=== PATIENT | female | born 1955 | race Caucasian/White ===

== ENCOUNTER 2018-05-05 05:06 | Emergency (ER) | payer OTHER ==
[~2018-05-05] VITALS: Ht 170.2 cm; Wt 93.0 kg
--- NOTE | ~2018-05-05 | EKG ---
[place] [address] [address] [facility] [place] [address] ELECTROCARDIOGRAM REPORT Name: MIRA SCOTT [id number] Admission: 05/05/18 Attend Phys: Discharge: Date of : 59 Report #: [id number] THIS REPORT FOR: //name// [facility] ED Test Date: 2018-05-05 Test Time: 05:42:09 Pat Name: MIRA SCOTT Department: Room: Gender: F [employer]: Matt MORROW : 1955 Requested By: Jono Charles Order Number: [id number] MD: Darrel Gallegos Measurements Intervals [place] Rate: 93 P: 61 MS: 152 QRS: -11 QRSD: 87 T: 39 QT: 340 QTc: 423 Interpretive Statements Sinus rhythm Normal tracing No previous ECG available for comparison Electronically Signed On 05-05-2018 8:17:39 CDT by Darrel Gallegos [email or web address] <ELECTRONICALLY SIGNED> By: Darrel Gallegos MD, [facility] 05/05/18 0817 0542 0542 Darrel Gallegos MD, [facility] /EPI
[2018-05-05 05:55] LABS: ABSOLUTE NEUTROPHILS 9.3 thou/uL (1.4-8.2); BASOPHILS 0.4 % (0.0-2.0); EOSINOPHILS 0.2 % (0.0-3.0); HEMATOCRIT 41.4 % (37.0-47.0); HEMOGLOBIN 14.4 gm/dL (12.0-15.0); LYMPHOCYTES 10.4 % (24.0-44.0); MCH 30.5 pg (26.0-34.0); MCHC 34.7 g/dL (28.0-37.0); MCV 88.1 fL (80.0-100.0); MONOCYTES 4.5 % (1.0-8.0); PLATELET COUNT 255 thou/uL (150-400); POLYS 84.5 % (36.0-66.0); RDW 13.3 % (10.5-14.5); WBC 11.1 thou/uL (4.0-11.0)
[2018-05-05 06:08] LABS: ANION GAP 9 mmol/L (7-16); BUN 8 mg/dL (7-18); CHLORIDE 103 mmol/L (98-107); CO2 26 mmol/L (21-32); GLUCOSE 142 mg/dL (74-106); SODIUM 138 mmol/L (136-145)
[2018-05-05 06:17] LABS: ALBUMIN 3.9 g/dL (3.4-5.0); MAGNESIUM 1.9 mg/dL (1.8-2.4); SGOT 23 U/L (15-37); SGPT 25 U/L (30-65); TOTAL BILIRUBIN 0.8 mg/dL (<0.1-1.0); TOTAL PROTEIN 7.9 g/dL (6.4-8.2); TROPONIN-I <0.06 ng/mL (<0.06)
[2018-05-05] MEDS ORDERED: PREDNISONE 20 M20 MG PO (07:30)
[2018-05-05] MEDS ORDERED: PEPCID40 MG PO (07:30)
[2018-05-05] MEDS ORDERED: CLARITIN10 MG PO (07:31)
[2018-05-05 07:47] VITALS: BP 158/75
== END 2018-05-05 07:50 | disposition home or self-care (01) ==
LOC: ER 05:06
PROVIDERS: Emergency Medicine
DX: K12.2 Cellulitis and abscess of mouth (principal); T78.40XA Allergy, unspecified, initial encounter; R06.00 Dyspnea, unspecified; R06.02 Shortness of breath; R22.1 Localized swelling, mass and lump, neck